=== PATIENT | female | born 1955 | race Caucasian/White ===

== ENCOUNTER 2022-09-17 06:48 | Day surgery (SDC) | payer OTHER ==
[~2022-09-17] VITALS: Ht 152.4 cm; Wt 65.8 kg
[2022-09-17] MEDS ORDERED: LR 1,000 ML IV.SOLN IV ONE (11:05)
[2022-09-17] MEDS ORDERED: PROPOFOL 200MG/ 20ML VIAL (DIPRIVAN) IV ONE (11:05)
[2022-09-17] MEDS ORDERED: ONDANSETRON HCL 4 MG/2 ML VIAL IVP PRN (12:15)
[2022-09-17] MEDS ORDERED: HYDROmorphone 1 MG/ML INJ. CARTRIDGE IVP PRN (12:15)
[2022-09-17] MEDS ORDERED: LR 1,000 ML IV SCH (12:15)
[2022-09-17] MEDS ORDERED: LABETALOL 100 MG/ 20ML VIAL IVP PRN (12:15)
[2022-09-17 12:35] VITALS: BP_SYST 140
== END 2022-09-17 13:10 | disposition home or self-care (01) ==
LOC: SDS 06:48 → SMU 06:49 → SDS 13:10
PROVIDERS: ATTEND Internal Medicine Gastroenterology
DX: R19.5 Other fecal abnormalities (principal); D12.0 Benign neoplasm of cecum; D12.2 Benign neoplasm of ascending colon; D12.3 Benign neoplasm of transverse colon; K57.30 Diverticulosis of large intestine without perforation or abscess without bleeding; K64.9 Unspecified hemorrhoids; Z20.822 Contact with and (suspected) exposure to COVID-19; Z79.899 Other long term (current) drug therapy
CPT/HCPCS: 36415 ×2; 45385; 71045; 87426; 93005; 88305; U0003; J2704; J7120